=== PATIENT | male | born 1970 | race African-American/Black ===

== ENCOUNTER 2019-10-27 00:03 | Emergency (ER) | payer MEDICAID ==
[~2019-10-27] VITALS: Ht 175.3 cm; Wt 115.0 kg
[~2019-10-27 00:03] MED LIST: CEFD300C37 PO; METR500T PO; NICO-486 TD; NICO-586 TD
[2019-10-27 00:07] VITALS: BP 165/100
[2019-10-27] MEDS ORDERED: ASPIRIN 81 MG TABLET CHEW PO ONE (00:30)
[2019-10-27] MEDS ORDERED: METHOCARBAMOL 750 MG TABLET ONE ×2 (00:42→00:46)
[2019-10-27] MEDS ORDERED: ASPIRIN 81 MG TABLET CHEW ONE (00:42)
[2019-10-27 00:52] LABS: BASOPHILS # (AUTO) 0.03 x10^3/uL (0-0.1); BASOPHILS % (AUTO) 1 % (0-1); EOSINOPHILS # (AUTO) 0.04 x10^3/uL (0-0.4); EOSINOPHILS % (AUTO) 1 % (1-7); LYMPHOCYTES # (AUTO) 2.09 x10^3/uL (1-3.4); LYMPHOCYTES % (AUTO) 42 % (22-44); MD NO; MEAN CORPUSCULAR HEMOGLOBIN 24.3 pg (27.5-34.5); MEAN CORPUSCULAR HGB CONC 32.5 g/dL (33.2-36.2); MEAN CORPUSCULAR VOLUME 74.7 fL (81-97); MEAN PLATELET VOLUME 9.7 fL (7.4-10.4); MONOCYTES % (AUTO) 10 % (2-9); NEUTROPHILS # (AUTO) 2.38 x10^3/uL (1.8-6.8); NEUTROPHILS % (AUTO) 47 % (42-75); PLATELET COUNT 176 x10^3/uL (130-400); RED BLOOD COUNT 5.72 x10^6/uL (4.38-5.82); RED CELL DISTRIBUTION WIDTH 14.6 % (9.4-14.8)
--- NOTE | 2019-10-27 00:58 | NUR ---
PT TO XRAY AND BACK WITHOUT ISSUE. DENIES ANY NEEDS OR CONCERNS. CALL LIGHT IN REACH.
[2019-10-27] MEDS ORDERED: METHOCARBAMOL 750 MG TABLET PO ONE (01:00)
[2019-10-27 01:06] LABS: ALBUMIN 3.6 g/dL (3.4-5.0); ANION GAP 8 mmol/L (5-15); CALCIUM 9.3 mg/dL (8.5-10.1); CHLORIDE 100 mmol/L (98-107)
[2019-10-27 01:11] LABS: CREATININE 1.15 mg/dL (0.7-1.3); TROPONIN I < 0.015 ng/mL (0.000-0.045)
== END 2019-10-27 02:10 | disposition home or self-care (01) ==
LOC: ED 01:34
DX: R07.89 Other chest pain (principal); I10 Essential (primary) hypertension; R94.31 Abnormal electrocardiogram [ECG] [EKG]; E11.9 Type 2 diabetes mellitus without complications
CPT/HCPCS: 36415; 71046; 80048; 82040; 83880; 84484; 85025; 85379; 93005; 99285

== ENCOUNTER 2019-11-09 14:08 | Emergency (ER) | payer MEDICAID ==
[~2019-11-09] VITALS: Ht 175.3 cm; Wt 109.1 kg
--- NOTE | 2019-11-09 15:57 | NUR ---
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
--- NOTE | 2019-11-09 16:20 | NUR ---
THIS IS A 49 YEAR OLD MALE WHO C/O OF SOB, COUGH, LOOSE GREEN STOOL, LOSS OF APPETITE X 3 DAYS. 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 PT STATES HE HAS NOT BEEN AROUND ANYONE WITH COVID-19
--- NOTE | 2019-11-09 16:54 | NUR ---
BREAK RN: PT RESTING, AWAITING MD FOR ORDERS.
[2019-11-09] MEDS ORDERED: MAALOX/HYOSCYAMINE/LIDOCAINE 45 ML BTL PO ONE (17:30)
[2019-11-09] MEDS ORDERED: FAMOTIDINE 20 MG TABLET PO ONE (17:30)
[2019-11-09] MEDS ORDERED: MAALOX/HYOSCYAMINE/LIDOCAINE 45 ML BTL ONE (17:38)
[2019-11-09] MEDS ORDERED: FAMOTIDINE 20 MG TABLET ONE ×2 (17:38→17:43)
[2019-11-09 17:51] LABS: BASOPHILS # (AUTO) 0.02 x10^3/uL (0-0.1); BASOPHILS % (AUTO) 1 % (0-1); EOSINOPHILS % (AUTO) 0 % (1-7); LYMPHOCYTES # (AUTO) 0.82 x10^3/uL (1-3.4); LYMPHOCYTES % (AUTO) 19 % (22-44); MD NO; MEAN CORPUSCULAR HEMOGLOBIN 23.8 pg (27.5-34.5); MEAN CORPUSCULAR HGB CONC 32.2 g/dL (33.2-36.2); MEAN CORPUSCULAR VOLUME 73.9 fL (81-97); MEAN PLATELET VOLUME 10.3 fL (7.4-10.4); MONOCYTES # (AUTO) 0.31 x10^3/uL (0.2-0.8); MONOCYTES % (AUTO) 7 % (2-9); NEUTROPHILS # (AUTO) 3.15 x10^3/uL (1.8-6.8); NEUTROPHILS % (AUTO) 73 % (42-75); PLATELET COUNT 120 x10^3/uL (130-400); RED BLOOD COUNT 6.57 x10^6/uL (4.38-5.82); RED CELL DISTRIBUTION WIDTH 14.3 % (9.4-14.8)
[2019-11-09 18:02] LABS: ALANINE AMINOTRANSFERASE 30 U/L (12-78); ALBUMIN 3.6 g/dL (3.4-5.0); ANION GAP 6 mmol/L (5-15); CHLORIDE 98 mmol/L (98-107); CREATININE 1.22 mg/dL (0.7-1.3)
[2019-11-09 18:04] LABS: ALKALINE PHOSPHATASE 66 U/L (45-117); BILIRUBIN,TOTAL 0.4 mg/dL (0.2-1.0); TOTAL PROTEIN 8.7 g/dL (6.4-8.2)
[2019-11-09 19:10] VITALS: BP 150/94
--- NOTE | 2019-11-09 19:10 | NUR ---
after md discussed plan of care, pt given discharge and ambulated to lobby steady gait
== END 2019-11-09 19:15 | disposition home or self-care (01) ==
LOC: ED 18:44
DX: U07.1 COVID-19 (principal); E87.1 Hypo-osmolality and hyponatremia; R05 Cough; R10.13 Epigastric pain; R19.7 Diarrhea, unspecified; R11.0 Nausea; R42 Dizziness and giddiness; I10 Essential (primary) hypertension; E11.9 Type 2 diabetes mellitus without complications
CPT/HCPCS: 36415; 74022; 80053; 83690; 85025; 87635; 99284

== ENCOUNTER 2020-04-16 19:59 | Emergency (ER) | payer MEDICAID ==
[~2020-04-16] VITALS: Ht 175.3 cm; Wt 115.6 kg
[~2020-04-16 19:59] MED LIST changes: +AMLO-211 PO; +ASCO100018 PO; +ASPI-515 PO; +CHOL10003 PO; +HYDR12.517 PO; +INSU100I13 SQ-INSULIN; +INSU100I34 SQ; +LISI-167 PO; +METF500T17 PO; +ZINC220C7 PO
[2020-04-16 22:06] LABS: MICROSCOPIC NOT IND
--- NOTE | 2020-04-16 22:54 | NUR ---
PT TO ROOM FROM LOBBY
[2020-04-16 23:04] LABS: BASOPHILS % (AUTO) 1 % (0-1); EOSINOPHILS % (AUTO) 1 % (1-7); LYMPHOCYTES % (AUTO) 45 % (22-44); MEAN CORPUSCULAR HEMOGLOBIN 24.4 pg (27.5-34.5); MEAN CORPUSCULAR HGB CONC 33.3 g/dL (33.2-36.2); MEAN PLATELET VOLUME 9.4 fL (7.4-10.4); MONOCYTES % (AUTO) 12 % (2-9); NEUTROPHILS % (AUTO) 42 % (42-75); PLATELET COUNT 175 x10^3/uL (130-400); RED BLOOD COUNT 6.16 x10^6/uL (4.38-5.82); RED CELL DISTRIBUTION WIDTH 14.5 % (9.4-14.8)
--- NOTE | 2020-04-16 23:08 | NUR ---
patient arrives with burning sensation at penis for two days.
[2020-04-16 23:11] LABS: ALBUMIN 3.9 g/dL (3.4-5.0); ANION GAP 9 mmol/L (5-15); CALCIUM 9.3 mg/dL (8.5-10.1); CHLORIDE 101 mmol/L (98-107)
[2020-04-16] MEDS ORDERED: CEFTRIAXONE 250 MG ONE (23:12)
[2020-04-16] MEDS ORDERED: AZITHROMYCIN 500 MG TABLET ONE (23:12)
[2020-04-16 23:19] LABS: ALKALINE PHOSPHATASE 90 U/L (45-117); BILIRUBIN,TOTAL 0.4 mg/dL (0.2-1.0); CREATININE 1.24 mg/dL (0.7-1.3); TOTAL PROTEIN 8.2 g/dL (6.4-8.2); TROPONIN I < 0.015 ng/mL (0.000-0.045)
[2020-04-16] MEDS ORDERED: CEFTRIAXONE 250 MG IM ONE (23:30)
[2020-04-16] MEDS ORDERED: AZITHROMYCIN 500 MG TABLET PO ONE (23:30)
[2020-04-16 23:35] VITALS: BP 132/78
[2020-04-16 23:45] LABS: ALANINE AMINOTRANSFERASE 34 U/L (12-78)
[2020-04-16 23:54] LABS: MD SCAN
== END 2020-04-16 23:46 | disposition home or self-care (01) ==
LOC: ED 20:30
DX: R06.00 Dyspnea, unspecified (principal); R00.0 Tachycardia, unspecified; R07.9 Chest pain, unspecified; I10 Essential (primary) hypertension; E11.9 Type 2 diabetes mellitus without complications
CPT/HCPCS: 36415; 71045; 80053; 81003; 83880; 84484; 85025; 93005; 96372; 99285; J0696

== ENCOUNTER 2020-06-11 09:19 | Emergency (ER) | payer MEDICAID ==
[~2020-06-11] VITALS: Ht 172.7 cm; Wt 115.0 kg
[~2020-06-11 09:19] MED LIST changes: -ASPI-515 PO; +ASPI-963 PO
[2020-06-11 09:27] VITALS: BP 150/97
[2020-06-11] MEDS ORDERED: AZITHROMYCIN 250 MG TABLET ONE (10:16)
[2020-06-11] MEDS ORDERED: CEFTRIAXONE 250 MG ONE (10:16)
--- NOTE | 2020-06-11 10:25 | NUR ---
UA SENT. MEDICATED PER ORDERS
[2020-06-11] MEDS ORDERED: CEFTRIAXONE 250 MG IM ONE (10:30)
[2020-06-11] MEDS ORDERED: AZITHROMYCIN 500 MG TABLET PO ONE (10:30)
[2020-06-11 10:33] LABS: MICROSCOPIC NOT IND
== END 2020-06-11 11:07 | disposition home or self-care (01) ==
LOC: ED 10:52
DX: N34.1 Nonspecific urethritis (principal); R30.0 Dysuria; E11.9 Type 2 diabetes mellitus without complications; I10 Essential (primary) hypertension; Z87.891 Personal history of nicotine dependence
CPT/HCPCS: 81003; 87491; 87591; 96372; 99283; J0696

== ENCOUNTER 2020-12-20 16:21 | Emergency (ER) | payer MEDICAID ==
[~2020-12-20] VITALS: Ht 175.3 cm; Wt 116.0 kg
[2020-12-20 17:36] VITALS: BP 152/98
[2020-12-20] MEDS ORDERED: CEFTRIAXONE 1,000 MG IM ONE (18:30)
[2020-12-20] MEDS ORDERED: CEFTRIAXONE 1,000 MG ONE (19:54)
--- NOTE | 2020-12-20 20:22 | NUR ---
Patient/Caregiver given discharge instructions and they have confirmed that they understand the instructions. Patient ambulatory with steady gait. NAD, all questions answered appropriately, denies additional needs at this time. No personal belongings left in room after discharge.
== END 2020-12-20 20:23 | disposition home or self-care (01) ==
LOC: ED 17:00
DX: N34.1 Nonspecific urethritis (principal); E11.9 Type 2 diabetes mellitus without complications; I10 Essential (primary) hypertension
CPT/HCPCS: 87491; 87591; 96372; 99283; J0696